=== PATIENT | male | born 1965 | race Two or more races ===

== ENCOUNTER 2021-02-19 19:22 | Emergency (ER) | payer BC ==
[~2021-02-19] VITALS: Ht 165.1 cm; Wt 71.2 kg
[2021-02-19] MEDS ORDERED: HUMULIN 70100 UNIT/1 (19:33)
[2021-02-20] MEDS ORDERED: PEPCID40 MG PO (01:02)
== END 2021-02-20 01:29 | disposition home or self-care (01) ==
LOC: ER 19:22 → CPU-OBS 20:46 → ER 20:46
DX: K21.9 Gastro-esophageal reflux disease without esophagitis (principal); R07.89 Other chest pain